=== PATIENT | male | born 1970 | race Caucasian/White ===

== ENCOUNTER 2021-07-24 12:20 | Inpatient (IN) ==
[2021-07-24] MEDS ORDERED: *HR* Promethazine 25 MG/ML VIAL IM PRN (23:54)
[2021-07-24] MEDS ORDERED: Acetaminophen 325 MG TABLET PO PRN (23:54)
[2021-07-24] MEDS ORDERED: Naloxone 0.4 MG/ML INJ IVP PRN (23:54)
[2021-07-24] MEDS ORDERED: Melatonin 3 MG TABLET PO PRN (23:54)
[2021-07-25] MEDS ORDERED: Azithromycin 500 MG in 0.9 % Sodium Chloride 250 ML IVPB SCH
[2021-07-25] MEDS: Ondansetron 4 MG/2 ML VIAL IVP PRN ×2 (01:42→12:16)
[2021-07-25 02:46] LABS: Basophils % 0.2 %; Hematocrit 46.6 % (37.5-50.1); Hemoglobin 14.9 g/dL (12.9-16.9); Immature Granulocytes % 0.5 % (0-4); Lymphocytes # 0.4 K/mcL (0.6-4.6); Lymphocytes % 3.3 %; Mean Corpuscular Hemoglobin 28.9 pg (28.0-33.3); Mean Corpuscular Volume 90.3 fL (83.0-100.0); Mean Platelet Volume 11.2 fL (9.4-12.4); Monocytes # 0.8 K/mcL (0.0-1.3); Monocytes % 6.6 %; Neutrophils # 10.7 K/mcL (1.6-8.9); Platelet Count 241 K/mcL (140-400); Red Blood Count 5.16 M/mcL (4.19-5.50); Red Cell Distribution Width 14.2 % (11.5-14.5); Segmented Neutrophils % 89.4 %
[2021-07-25 03:01] LABS: INR 1.3; Prothrombin Time 14.5 Seconds (9.4-12.1)
[2021-07-25 03:04] LABS: Alanine Aminotransferase 202 Units/L (7-52); Alkaline Phosphatase 136 Units/L (34-104); Aspartate Amino Transferase 126 Units/L (13-39); BUN/Creatinine Ratio 23 (6-26); Bilirubin,Total 1.1 mg/dL (0.3-1.0); Blood Urea Nitrogen 21 mg/dL (6-20); C-Reactive Protein 51 mg/L (Less than 10); Calcium 8.5 mg/dL (8.6-10.3); Carbon Dioxide 30 mEq/L (23-29); Chloride 99 mEq/L (98-107); Glucose 123 mg/dL (70-105); Lactate Dehydrogenase 486 Units/L (140-271); Magnesium 2.1 mg/dL (1.6-2.6); Osmolality,Calculated 290 (280-300); Potassium 3.8 mEq/L (3.5-5.1); Sodium 138 mEq/L (136-145); eGFR For African Americans > 60 (> 60); eGFR For Non-African Americans > 60 (> 60)
[2021-07-25 03:27] LABS: Ferritin > 1500 ng/mL (20-250)
[2021-07-25] MEDS: *HR* Enoxaparin 40 MG/0.4 ML SYRINGE SQ SCH (05:47)
[2021-07-25] MEDS ORDERED: Remdesivir 200 MG in 0.9 % Sodium Chloride 100 ML IVPB ONE (07:43)
[2021-07-25] MEDS: Dexamethasone Sodium Phos/PF 10 MG/ML VIAL IVP SCH (08:49)
[2021-07-25] MEDS: cefTRIAXone 1,000 MG in Water for inj. (sterile) 10 ML IVP SCH (08:50)
[2021-07-25] MEDS ORDERED: Dexamethasone Sodium Phos/PF 10 MG/ML VIAL IVP SCH (09:00)
[2021-07-25] MEDS: hydrOXYzine pamoate 25 MG CAPSULE PO PRN ×2 (12:15→20:59)
[2021-07-26] MEDS: *HR* Enoxaparin 40 MG/0.4 ML SYRINGE SQ SCH (05:05)
[2021-07-26 05:45] LABS: Albumin 3.1 g/dL (3.5-5.7); Albumin/Globulin Ratio 1.1 (1.1-2.2); Bilirubin,Direct 0.4 mg/dL (0.0-0.2); Bilirubin,Indirect 0.7 mg/dL (0.0-1.0); Bilirubin,Total 1.1 mg/dL (0.3-1.0); Globulin 2.9 g/dL (2.4-3.5)
[2021-07-26 05:48] LABS: BUN/Creatinine Ratio 23 (6-26); Blood Urea Nitrogen 22 mg/dL (6-20); Calcium 8.9 mg/dL (8.6-10.3); Carbon Dioxide 32 mEq/L (23-29); Chloride 99 mEq/L (98-107); Glucose 118 mg/dL (70-105); Magnesium 2.3 mg/dL (1.6-2.6); Osmolality,Calculated 288 (280-300); Phosphorous 3.8 mg/dL (2.7-4.5); Potassium 4.5 mEq/L (3.5-5.1); Sodium 137 mEq/L (136-145); eGFR For African Americans > 60 (> 60); eGFR For Non-African Americans > 60 (> 60)
[2021-07-26] MEDS ORDERED: Remdesivir 100 MG in 0.9 % Sodium Chloride 100 ML IVPB SCH (08:00)
[2021-07-26] MEDS: cefTRIAXone 1,000 MG in Water for inj. (sterile) 10 ML IVP SCH (09:43)
[2021-07-26] MEDS: Azithromycin 250 MG TABLET PO SCH (09:43)
[2021-07-26] MEDS: Dexamethasone Sodium Phos/PF 10 MG/ML VIAL IVP SCH (09:44)
[2021-07-26] MEDS: Ondansetron 4 MG/2 ML VIAL IVP PRN (10:02)
[2021-07-27 06:00] LABS: Albumin 2.9 g/dL (3.5-5.7); Bilirubin,Direct 0.2 mg/dL (0.0-0.2); Bilirubin,Indirect 1.1 mg/dL (0.0-1.0); Bilirubin,Total 1.3 mg/dL (0.3-1.0); Globulin 2.9 g/dL (2.4-3.5); Total Protein 5.8 g/dL (6.4-8.9)
[2021-07-27] MEDS: *HR* Enoxaparin 40 MG/0.4 ML SYRINGE SQ SCH (06:10)
[2021-07-27] MEDS: Azithromycin 250 MG TABLET PO SCH (10:17)
[2021-07-27] MEDS: cefTRIAXone 1,000 MG in Water for inj. (sterile) 10 ML IVP SCH (10:17)
[2021-07-27] MEDS: Dexamethasone Sodium Phos/PF 10 MG/ML VIAL IVP SCH (10:17)
[2021-07-27] MEDS: hydrOXYzine pamoate 25 MG CAPSULE PO PRN ×2 (10:33→22:13)
[2021-07-27] MEDS: Benzonatate 100 MG CAPSULE PO PRN ×3 (10:33→22:12)
[2021-07-27] MEDS: Ondansetron 4 MG/2 ML VIAL IVP PRN (10:33)
[2021-07-27 12:11] LABS: BUN/Creatinine Ratio 25 (6-26); Blood Urea Nitrogen 22 mg/dL (6-20); Calcium 8.9 mg/dL (8.6-10.3); Carbon Dioxide 32 mEq/L (23-29); Chloride 98 mEq/L (98-107); Glucose 122 mg/dL (70-105); Osmolality,Calculated 287 (280-300); Sodium 136 mEq/L (136-145); eGFR For African Americans > 60 (> 60); eGFR For Non-African Americans > 60 (> 60)
[2021-07-27] MEDS ORDERED: Ipratropium/Albuterol Neb 3 ML IH SCH (16:00)
[2021-07-27] MEDS: Ipratropium 1 PUFF INHALER IH SCH (21:28)
[2021-07-28 01:57] LABS: Albumin 2.8 g/dL (3.5-5.7); Bilirubin,Direct 0.4 mg/dL (0.0-0.2); Bilirubin,Indirect 0.6 mg/dL (0.0-1.0); Globulin 2.9 g/dL (2.4-3.5); Total Protein 5.7 g/dL (6.4-8.9)
[2021-07-28] MEDS: Ipratropium 1 PUFF INHALER IH SCH ×2 (03:50→09:54)
[2021-07-28 03:51] VITALS: TEMP 99.4
[2021-07-28] MEDS: *HR* Enoxaparin 40 MG/0.4 ML SYRINGE SQ SCH (06:59)
[2021-07-28] MEDS ORDERED: Isovue-370 500 ML BOTTLE IVP ONE (07:31)
[2021-07-28] MEDS: cefTRIAXone 1,000 MG in Water for inj. (sterile) 10 ML IVP SCH (07:39)
[2021-07-28] MEDS: Dexamethasone Sodium Phos/PF 10 MG/ML VIAL IVP SCH (07:39)
[2021-07-28] MEDS: Azithromycin 250 MG TABLET PO SCH (07:39)
[2021-07-28 08:05] LABS: Basophils # 0.1 K/mcL (0.0-0.2); Basophils % 0.6 %; Eosinophils # 0.1 K/mcL (0.0-0.6); Eosinophils % 1.1 %; Hematocrit 45.8 % (37.5-50.1); Hemoglobin 14.8 g/dL (12.9-16.9); Immature Granulocytes % 4.6 % (0-4); Lymphocytes # 0.6 K/mcL (0.6-4.6); Lymphocytes % 4.8 %; Mean Corpuscular HGB Conc 32.3 g/dL (31.6-35.5); Mean Corpuscular Hemoglobin 28.6 pg (28.0-33.3); Mean Corpuscular Volume 88.4 fL (83.0-100.0); Mean Platelet Volume 10.3 fL (9.4-12.4); Monocytes # 0.7 K/mcL (0.0-1.3); Monocytes % 4.9 %; Neutrophils # 11.1 K/mcL (1.6-8.9); Platelet Count 335 K/mcL (140-400); Red Blood Count 5.18 M/mcL (4.19-5.50); Red Cell Distribution Width 13.3 % (11.5-14.5); White Blood Count 13.2 K/mcL (4.3-11.1)
[2021-07-28 08:14] LABS: INR 1.2; Prothrombin Time 13.9 Seconds (9.4-12.1)
[2021-07-28 08:17] LABS: Activated Partial Thrombo Time 24.3 Seconds (26.0-36.0)
[2021-07-28 08:26] LABS: BUN/Creatinine Ratio 23 (6-26); Blood Urea Nitrogen 20 mg/dL (6-20); Calcium 8.9 mg/dL (8.6-10.3); Carbon Dioxide 30 mEq/L (23-29); Chloride 100 mEq/L (98-107); Chol/HDL Ratio 6.7 (0-4.9); Cholesterol 188 mg/dL (< 200); Glucose 103 mg/dL (70-105); HDL Cholesterol 28 mg/dL (40-59); LDL Cholesterol,Calculated 124 mg/dL (< 100); Magnesium 2.1 mg/dL (1.6-2.6); Osmolality,Calculated 287 (280-300); Potassium 4.3 mEq/L (3.5-5.1); Sodium 137 mEq/L (136-145); Triglycerides 182 mg/dL (< 150); Troponin I < 0.03 ng/mL (< 0.04); eGFR For African Americans > 60 (> 60); eGFR For Non-African Americans > 60 (> 60)
[2021-07-28] MEDS ORDERED: *HR* Heparin 5,000 UNIT/ML VIAL IVP PRN ×2 (08:49)
[2021-07-28] MEDS ORDERED: Aspirin 325 MG TABLET PO ONE (08:50)
[2021-07-28] MEDS ORDERED: Heparin 25,000UNIT/250ML 1/2NS 25,000 UNIT/250 ML IV.SOLN IVC SCH (09:00)
[2021-07-28 09:04] LABS: Estimated Average Glucose 137 mg/dl; Hemoglobin A1C 6.4 %
[2021-07-28 09:18] VITALS: BP 150/82; PULSE 77; O2SAT 94
== END 2021-07-28 10:06 | disposition short-term general hospital (02) | DRG 871 ==
LOC: 2NENU → SUATTDRO 23:55
PROVIDERS: ADMIT Pharmacist; ATTEND Internal Medicine